=== PATIENT | female | born 1950 | race Caucasian/White ===

== ENCOUNTER → 2018-07-08 | Outpatient (CLI) | payer MEDICARE | END | disposition home or self-care (01) | LOC: CARD DIAG 14:43 | DX: C50.411 Malignant neoplasm of upper-outer quadrant of right female breast (principal); I35.8 Other nonrheumatic aortic valve disorders | CPT/HCPCS: 93306 ==

== ENCOUNTER 2018-08-10 20:17 | Inpatient (IN) | payer MEDICARE, OTHER ==
[~2018-08-10] VITALS: Ht 165.1 cm; Wt 122.7 kg
[2018-08-10] MEDS ORDERED: CefTRIAXone 2gm/D5W 50ml 50 ML IV ONE (20:50)
--- NOTE | 2018-08-10 21:30 | NUR ---
relieving RN for break, started IV on 1st attempt to rt hand, 1st set of blood cx drawn, pt is resting quietly on family criselda at bedside
--- NOTE | 2018-08-10 21:45 | NUR ---
in and out cath done with sterile technique, sample to lab, pt louie well
[2018-08-10 21:47] LABS: BASOPHILS % (AUTO) 2.3 % (0-1); EOSINOPHILS # (AUTO) 0.2 X10'3 (0-0.9); EOSINOPHILS % (AUTO) 18.8 % (0-6); HEMATOCRIT 35.7 % (35.0-45.0); HEMOGLOBIN 12.3 g/dl (12.0-16.0); LYMPHOCYTES # (AUTO) 0.6 X10'3 (1.1-4.8); LYMPHOCYTES % (AUTO) 59.1 % (21-51); MEAN CORPUSCULAR HEMOGLOBIN 31.4 PG (27.0-31.0); MEAN CORPUSCULAR HGB CONC 34.3 g/dL (33.0-36.5); MEAN CORPUSCULAR VOLUME 91.8 FL (78-98); MEAN PLATELET VOLUME 8.1 FL (7.4-10.4); MONOCYTES % (AUTO) 4.6 % (2-12); NEUTROPHILS # (AUTO) 0.2 X10'3 (1.8-7.7); NEUTROPHILS % (AUTO) 15.2 % (42-75); PLATELET COUNT 200 X10'3 (140-440); RED CELL DISTRIBUTION WIDTH 14.2 % (11.5-14.5); WHITE BLOOD COUNT 1.1 X10'3 (4.5-11.0)
[2018-08-10 21:59] LABS: ALANINE AMINOTRANSFERASE 30 U/L (12-78); ALBUMIN 2.9 G/DL (3.4-5.0); ALBUMIN/GLOBULIN RATIO 0.8 (1.1-1.5); ALKALINE PHOSPHATASE 102 IU/L (46-116); ANION GAP 10 (8-16); ASPARTATE AMINO TRANSFERASE 25 U/L (10-37); BILIRUBIN,TOTAL 0.3 MG/DL (0.1-1.0); BLOOD UREA NITROGEN 11 MG/DL (7-18); BUN/CREATININE RATIO 12.8 (6.6-38.0); CALCIUM 8.5 MG/DL (8.5-10.1); CHLORIDE 102 MMOL/L (99-107); CREATININE 0.86 MG/DL (0.40-0.90); GLUCOSE 202 MG/DL (70-104); MAGNESIUM 1.4 MG/DL (1.5-2.4); POTASSIUM 3.6 MMOL/L (3.5-5.1); SODIUM 139 MMOL/L (135-145); TOTAL CARBON DIOXIDE 27.1 MMOL/L (24-32); TOTAL PROTEIN 6.4 G/DL (6.4-8.2); eGFR 66 ML/MIN
[2018-08-10 22:04] LABS: UA COLLECTION TYPE OTHER
[2018-08-10 22:05] LABS: CLARITY,URINE SLIGHTLY CLOUDY (Clear); COLOR,URINE YELLOW (Yellow); GLUCOSE, URINE NEGATIVE (Neg); KETONES,URINE 15 mg/dl (Neg); LEUKOCYTE ESTERASE ,URINE NEGATIVE (Neg); NITRITES, URINE NEGATIVE (Neg); OCCULT BLOOD,URINE NEGATIVE (Neg); PH,URINE 5.5 (4.8-8.0); PROTEIN,URINE 30 mg/dl (Neg); UROBILINOGEN,URINE 0.2 E.U/dL (0.2-1.0)
[2018-08-10 22:19] LABS: MUCUS STRANDS MANY /LPF (Neg); RBC,URINE 0-2 /HPF (0-2); SQUAMOUS EPITHELIAL CELL,UR MANY /LPF (FEW)
[2018-08-10 22:20] LABS: BACTERIA,URINE 1+ /HPF (Neg)
[2018-08-10 22:25] LABS: LYMPHOCYTES % (MANUAL) 56.7 % (21-51); MONOCYTES % (MANUAL) 6.7 % (2-12); NEUTROPHILS % (MANUAL) 16.7 % (42-75); PLATELET ESTIMATE NORMAL; TOTAL CELLS COUNTED 30
[2018-08-10] MEDS ORDERED: cefepime 1GM/NS ADD-VANTAGE 100 ML IV ONE (22:50)
[2018-08-10] MEDS ORDERED: acetaminophen 325mg tablet PO PRN (23:00)
[2018-08-10] MEDS ORDERED: magnesium hydroxide 30ml (MOM) UD suspension PO PRN (23:00)
[2018-08-10] MEDS ORDERED: ondansetron/PF 4mg/2ml inj IV PRN (23:00)
[2018-08-10] MEDS ORDERED: mag hydrox/Alum hydrox/simeth 30ml oral suspension PO PRN (23:00)
--- NOTE | 2018-08-10 23:13 | NUR ---
hepa filter placed in pts room
--- NOTE | 2018-08-10 23:45 | NUR ---
Patient in room PCU 3021. I have received report from Apple NICOLE and had the opportunity to ask questions and assume patient care.
--- NOTE | 2018-08-10 23:55 | NUR ---
Pt arrived to [facility]
[2018-08-11] VITALS (8 sets, daily range): BP systolic 97–186; BP diastolic 66–94
[2018-08-11] MEDS: normal saline 1000ml 1,000 ML IV SCH ×3 (01:39→23:16)
[2018-08-11 05:07] LABS: ALBUMIN 2.8 G/DL (3.4-5.0); ANION GAP 9 (8-16); BLOOD UREA NITROGEN 9 MG/DL (7-18); CALCIUM 8.9 MG/DL (8.5-10.1); CHLORIDE 103 MMOL/L (99-107); CREATININE 0.82 MG/DL (0.40-0.90); GLUCOSE 119 MG/DL (70-104); SODIUM 139 MMOL/L (135-145); eGFR 70 ML/MIN
--- NOTE | 2018-08-11 05:17 | NUR ---
Paged Dr. Durant MESSAGE: Chalino NICOLE [phone] Yodit Chris: Pt requesting analgesic. Pt claims to take [place] 10/325 at home. No Rx for pain ordered at this time. Pt rates pain 7/10 in lower back. Thank you.
[2018-08-11] MEDS: HYDROcodone/acetaminophen 10/325mg tab PO PRN ×3 (05:30→19:12)
[2018-08-11 05:58] LABS: BASOPHILS % (AUTO) 1.3 % (0-1); EOSINOPHILS # (AUTO) 0.2 X10'3 (0-0.9); HEMATOCRIT 33.8 % (35.0-45.0); HEMOGLOBIN 11.5 g/dl (12.0-16.0); LYMPHOCYTES # (AUTO) 0.8 X10'3 (1.1-4.8); LYMPHOCYTES % (AUTO) 64.3 % (21-51); MEAN CORPUSCULAR HEMOGLOBIN 31.4 PG (27.0-31.0); MEAN CORPUSCULAR HGB CONC 34.1 g/dL (33.0-36.5); MEAN PLATELET VOLUME 7.8 FL (7.4-10.4); MONOCYTES # (AUTO) 0.1 X10'3 (0-0.9); MONOCYTES % (AUTO) 4.8 % (2-12); NEUTROPHILS # (AUTO) 0.2 X10'3 (1.8-7.7); NEUTROPHILS % (AUTO) 12.6 % (42-75); PLATELET COUNT 185 X10'3 (140-440); RED BLOOD COUNT 3.67 X10'6 (4.20-5.60); WHITE BLOOD COUNT 1.3 X10'3 (4.5-11.0)
[2018-08-11 06:54] LABS: PLATELET ESTIMATE NORMAL; TOTAL CELLS COUNTED 100
[2018-08-11] MEDS: TBO-filgrastim 480 MCG/0.8ml syringe SQ SCH (08:00)
[2018-08-11] MEDS: enoxaparin 40mg/0.4ml syringe SUBCUT SCH (08:17)
[2018-08-11] MEDS ORDERED: ONDA8TAB12 PO (11:24)
[2018-08-11] MEDS ORDERED: HYDR-3972 PO (11:24)
[2018-08-11] MEDS ORDERED: DULO60CA64 PO (11:24)
[2018-08-11] MEDS ORDERED: PROC10TA10 PO (11:24)
[2018-08-11] MEDS ORDERED: LORA-269 PO (11:25)
[2018-08-11] MEDS ORDERED: LOSA1TAB39 PO (11:25)
[2018-08-11] MEDS: cefepime 2g/NS 100ml ADVANTAGE 100 ML IV SCH ×2 (12:19→23:27)
[2018-08-11] MEDS ORDERED: proCHLORperazine 10mg tablet PO PRN (13:20)
[2018-08-11] MEDS ORDERED: HYDROcodone/acetaminophen 10/325mg tab PO PRN (13:20)
[2018-08-11] MEDS ORDERED: ondansetron 4mg rapidly disintigrating tab PO PRN (13:45)
--- NOTE | 2018-08-11 18:15 | NUR ---
Problems reprioritized. Patient report given, questions answered & plan of care reviewed with [place] NICOLE.
[2018-08-11] MEDS: LORazepam 0.5 MG tablet PO PRN (19:12)
[2018-08-12] MEDS: HYDROcodone/acetaminophen 10/325mg tab PO PRN ×5 (02:43→20:22)
[2018-08-12 03:00] VITALS: BP 176/88
[2018-08-12] MEDS: normal saline 1000ml 1,000 ML IV SCH ×3 (04:59→20:47)
[2018-08-12 05:46] LABS: BASOPHILS % (AUTO) 2.7 % (0-1); EOSINOPHILS # (AUTO) 0.2 X10'3 (0-0.9); EOSINOPHILS % (AUTO) 12.6 % (0-6); HEMATOCRIT 32.4 % (35.0-45.0); LYMPHOCYTES # (AUTO) 0.8 X10'3 (1.1-4.8); LYMPHOCYTES % (AUTO) 49.7 % (21-51); MEAN CORPUSCULAR HEMOGLOBIN 31.1 PG (27.0-31.0); MEAN CORPUSCULAR VOLUME 91.4 FL (78-98); MEAN PLATELET VOLUME 8.2 FL (7.4-10.4); MONOCYTES # (AUTO) 0.2 X10'3 (0-0.9); MONOCYTES % (AUTO) 10.1 % (2-12); NEUTROPHILS # (AUTO) 0.4 X10'3 (1.8-7.7); NEUTROPHILS % (AUTO) 24.9 % (42-75); PLATELET COUNT 161 X10'3 (140-440); RED BLOOD COUNT 3.54 X10'6 (4.20-5.60); RED CELL DISTRIBUTION WIDTH 13.7 % (11.5-14.5); WHITE BLOOD COUNT 1.7 X10'3 (4.5-11.0)
[2018-08-12 06:08] LABS: ALBUMIN 2.7 G/DL (3.4-5.0); ANION GAP 8 (8-16); BLOOD UREA NITROGEN 5 MG/DL (7-18); BUN/CREATININE RATIO 6.8 (6.6-38.0); CALCIUM 8.2 MG/DL (8.5-10.1); CHLORIDE 105 MMOL/L (99-107); CREATININE 0.74 MG/DL (0.40-0.90); GLUCOSE 121 MG/DL (70-104); POTASSIUM 4.2 MMOL/L (3.5-5.1); SODIUM 140 MMOL/L (135-145); TOTAL CARBON DIOXIDE 27.4 MMOL/L (24-32); eGFR 79 ML/MIN
[2018-08-12 06:12] LABS: PLATELET ESTIMATE NORMAL; TOTAL CELLS COUNTED 100
--- NOTE | 2018-08-12 06:15 | NUR ---
Problems reprioritized. Patient report given, questions answered & plan of care reviewed with Deepali NICOLE.
--- NOTE | 2018-08-12 06:17 | NUR ---
Patient in room PCU 3021. I have received report from Anjali NICOLE and had the opportunity to ask questions and assume patient care.
[2018-08-12 07:00] VITALS: BP 170/88
[2018-08-12] MEDS: losartan 50mg tablet PO SCH (07:20)
[2018-08-12] MEDS: duloxetine 30mg CAPSULE.DR PO SCH (07:21)
[2018-08-12] MEDS: TBO-filgrastim 480 MCG/0.8ml syringe SQ SCH (07:22)
[2018-08-12] MEDS: HYDROchlorothiazide 25mg tablet PO SCH (07:22)
[2018-08-12] MEDS: enoxaparin 40mg/0.4ml syringe SUBCUT SCH (07:23)
[2018-08-12] MEDS: LORazepam 0.5 MG tablet PO PRN ×2 (07:24→16:19)
[2018-08-12] MEDS ORDERED: non-formulary drug (Losartan/Hydrochlorothiazide (Losartan-Hctz 100-25 Mg Tab) 1 TAB) PO SCH (08:00)
[2018-08-12] MEDS: loperamide 2mg capsule PO PRN ×2 (10:06→16:20)
[2018-08-12] MEDS: loratadine 10mg tablet PO SCH (10:06)
[2018-08-12 11:00] VITALS: BP 158/77
[2018-08-12] MEDS: cefepime 2g/NS 100ml ADVANTAGE 100 ML IV SCH (12:08)
[2018-08-12 15:00] VITALS: BP 137/70
[2018-08-12 18:00] VITALS: BP 151/86
--- NOTE | 2018-08-12 18:11 | NUR ---
Problems reprioritized. Patient report given, questions answered & plan of care reviewed with Anjali NICOLE. Patient stable at transfer of care.
--- NOTE | 2018-08-12 18:18 | NUR ---
[place] documentation: I have reviewed and agree with all interventions, assessments performed and documented by Graciela NICOLE. [place] Medication Administration: For this medication-pass time frame, all medication were reviewed, dispensed, administered and documented per hospital policy by Graciela NICOLE.
--- NOTE | 2018-08-12 18:20 | NUR ---
Patient in room PCU 3021. I have received report from Deepali NICOLE and had the opportunity to ask questions and assume patient care.
[2018-08-12 23:00] VITALS: BP 159/74
[2018-08-13] MEDS: LORazepam 0.5 MG tablet PO PRN ×2 (00:08→08:54)
[2018-08-13] MEDS: cefepime 2g/NS 100ml ADVANTAGE 100 ML IV SCH ×2 (00:09→12:00)
[2018-08-13] MEDS: HYDROcodone/acetaminophen 10/325mg tab PO PRN ×3 (01:23→13:24)
[2018-08-13 02:00] VITALS: BP 159/71
[2018-08-13 06:30] VITALS: BP 161/81
--- NOTE | 2018-08-13 06:31 | NUR ---
Patient in room PCU 3021. I have received report from COREY ARIZA and had the opportunity to ask questions and assume patient care.
[2018-08-13 06:48] LABS: BASOPHILS % (AUTO) 0.1 % (0-1); EOSINOPHILS # (AUTO) 0.2 X10'3 (0-0.9); EOSINOPHILS % (AUTO) 4.1 % (0-6); HEMATOCRIT 33.9 % (35.0-45.0); HEMOGLOBIN 11.3 g/dl (12.0-16.0); LYMPHOCYTES # (AUTO) 1.1 X10'3 (1.1-4.8); MEAN CORPUSCULAR HEMOGLOBIN 30.8 PG (27.0-31.0); MEAN CORPUSCULAR HGB CONC 33.2 g/dL (33.0-36.5); MEAN CORPUSCULAR VOLUME 92.9 FL (78-98); MEAN PLATELET VOLUME 8.2 FL (7.4-10.4); MONOCYTES % (AUTO) 0.4 % (2-12); NEUTROPHILS # (AUTO) 4.6 X10'3 (1.8-7.7); NEUTROPHILS % (AUTO) 77.4 % (42-75); PLATELET COUNT 192 X10'3 (140-440); RED BLOOD COUNT 3.66 X10'6 (4.20-5.60); RED CELL DISTRIBUTION WIDTH 14.2 % (11.5-14.5); WHITE BLOOD COUNT 5.9 X10'3 (4.5-11.0)
[2018-08-13 07:04] LABS: ALBUMIN 2.7 G/DL (3.4-5.0); ANION GAP 8 (8-16); BLOOD UREA NITROGEN 3 MG/DL (7-18); BUN/CREATININE RATIO 4.5 (6.6-38.0); CALCIUM 8.3 MG/DL (8.5-10.1); CHLORIDE 105 MMOL/L (99-107); CREATININE 0.66 MG/DL (0.40-0.90); GLUCOSE 112 MG/DL (70-104); POTASSIUM 3.3 MMOL/L (3.5-5.1); SODIUM 142 MMOL/L (135-145); TOTAL CARBON DIOXIDE 28.7 MMOL/L (24-32); eGFR 90 ML/MIN
[2018-08-13] MEDS: TBO-filgrastim 480 MCG/0.8ml syringe SQ SCH (08:37)
[2018-08-13] MEDS: enoxaparin 40mg/0.4ml syringe SUBCUT SCH (08:38)
[2018-08-13] MEDS: duloxetine 30mg CAPSULE.DR PO SCH (08:38)
[2018-08-13] MEDS: losartan 50mg tablet PO SCH (08:38)
[2018-08-13] MEDS: HYDROchlorothiazide 25mg tablet PO SCH (08:38)
[2018-08-13] MEDS: loratadine 10mg tablet PO SCH (08:38)
[2018-08-13] MEDS: normal saline 1000ml 1,000 ML IV SCH (08:39)
[2018-08-13 08:47] VITALS: BP 156/87
[2018-08-13 08:50] LABS: TOTAL CELLS COUNTED 100
[2018-08-13 08:51] LABS: PLATELET ESTIMATE NORMAL; POLYCHROMASIA 1+; TOXIC GRANULATION 3+
--- NOTE | 2018-08-13 09:05 | NUR ---
PAGED DR. JIMENEZ PAGER ID: [phone] MESSAGE: DANIEL CORCORAN [phone] JENNIFER PARRA 3.3 REPLACEMENT ORDERS?
--- NOTE | 2018-08-13 10:03 | NUR ---
SPOKE TO DR JIMENEZ NO ORDERS TO REPLACE K NEEDED PER MD. HE IS AWARE K 3.3
[2018-08-13] MEDS: loperamide 2mg capsule PO PRN (10:28)
[2018-08-13 11:00] VITALS: BP 160/81
--- NOTE | 2018-08-13 15:00 | NUR ---
PT DISCHARGED IN STABLE CONDITION, PIV D/C'D, ALL BELONGINGS SENT HOME WITH PT. DISCHARGE INSTRUCTIONS GIVEN TO PT AND PTS DAUGHTER. PT HAS AN APPT AT [facility] NEXT WEEK.
== END 2018-08-13 15:00 | disposition home or self-care (01) | DRG 809 ==
LOC: ER 20:18 → ED HOLD 22:59 → PCU 3S 23:42
PROVIDERS: ADMIT Family Medicine; ATTEND Internal Medicine
DX: D70.1 Agranulocytosis secondary to cancer chemotherapy (principal); Z68.42 Body mass index [BMI] 45.0-49.9, adult; C50.919 Malignant neoplasm of unspecified site of unspecified female breast; G47.30 Sleep apnea, unspecified; I10 Essential (primary) hypertension; J45.909 Unspecified asthma, uncomplicated; G89.29 Other chronic pain; M54.9 Dorsalgia, unspecified; T45.1X5A Adverse effect of antineoplastic and immunosuppressive drugs, initial encounter; R50.81 Fever presenting with conditions classified elsewhere; E66.01 Morbid (severe) obesity due to excess calories; Z88.2 Allergy status to sulfonamides; Z91.048 Other nonmedicinal substance allergy status; Z79.899 Other long term (current) drug therapy; Z85.3 Personal history of malignant neoplasm of breast; Z80.1 Family history of malignant neoplasm of trachea, bronchus and lung; Y92.89 Other specified places as the place of occurrence of the external cause
CPT/HCPCS: 36415; 71045; 80048; 80053; 81001; 83605; 83735; 83880; 84145; 85025; 87040; 87070; 87088; 93005; 96365; 99285; G0378; J0692; J0696; J1442; J1650; J2405; J7030

== ENCOUNTER 2020-03-14 18:58 | Emergency (ER) | payer MEDICARE, MEDICAID ==
[~2020-03-14] VITALS: Ht 167.6 cm; Wt 120.0 kg
[~2020-03-14 18:58] MED LIST: DULO60CA65 PO; HYDR-3972 PO; LORA-269 PO; LOSA1TAB39 PO; ONDA8TAB65 PO; PROC10TA10 PO
[2020-03-14 21:22] LABS: BASOPHILS # (AUTO) 0.1 X10'3 (0-0.2); BASOPHILS % (AUTO) 0.6 % (0-1); EOSINOPHILS # (AUTO) 0.4 X10'3 (0-0.9); EOSINOPHILS % (AUTO) 3.8 % (0-6); HEMATOCRIT 41.6 % (35.0-45.0); LYMPHOCYTES # (AUTO) 1.1 X10'3 (1.1-4.8); LYMPHOCYTES % (AUTO) 9.6 % (21-51); MEAN CORPUSCULAR HEMOGLOBIN 31.2 PG (27.0-31.0); MEAN CORPUSCULAR HGB CONC 33.6 g/dL (33.0-36.5); MEAN CORPUSCULAR VOLUME 92.8 FL (78-98); MEAN PLATELET VOLUME 7.6 FL (7.4-10.4); MONOCYTES # (AUTO) 0.8 X10'3 (0-0.9); MONOCYTES % (AUTO) 6.8 % (2-12); NEUTROPHILS # (AUTO) 8.9 X10'3 (1.8-7.7); NEUTROPHILS % (AUTO) 79.2 % (42-75); PLATELET COUNT 370 X10'3 (140-440); RED BLOOD COUNT 4.48 X10'6 (4.20-5.60); RED CELL DISTRIBUTION WIDTH 14.6 % (11.5-14.5); WHITE BLOOD COUNT 11.2 X10'3 (4.5-11.0)
[2020-03-14 21:30] LABS: ALANINE AMINOTRANSFERASE 39 U/L (12-78); ALBUMIN 3.7 G/DL (3.4-5.0); ALBUMIN/GLOBULIN RATIO 0.8 (1.1-1.5); ALKALINE PHOSPHATASE 129 IU/L (46-116); ANION GAP 10 (8-16); ASPARTATE AMINO TRANSFERASE 33 U/L (10-37); BILIRUBIN,TOTAL 0.2 MG/DL (0.1-1.0); BLOOD UREA NITROGEN 18 MG/DL (7-18); BUN/CREATININE RATIO 13.3 (6.6-38.0); CALCIUM 9.5 MG/DL (8.5-10.1); CHLORIDE 100 MMOL/L (99-107); CREATININE 1.35 MG/DL (0.40-0.90); GLUCOSE 157 MG/DL (70-104); POTASSIUM 3.7 MMOL/L (3.5-5.1); SODIUM 139 MMOL/L (135-145); TOTAL CARBON DIOXIDE 28.6 MMOL/L (24-32); TOTAL PROTEIN 8.1 G/DL (6.4-8.2); eGFR 39 ML/MIN
[2020-03-14] MEDS ORDERED: normal saline 1000ml 1,000 ML IV ONE (21:50)
[2020-03-14] MEDS ORDERED: iohexol 350MG/ML 100ml bottle IV ONE (21:54)
[2020-03-14 23:18] VITALS: BP 150/86
[2020-03-14] MEDS ORDERED: ALBU8HFA PO (23:55)
== END 2020-03-15 01:22 | disposition home or self-care (01) ==
LOC: ER 18:59
DX: R06.02 Shortness of breath (principal); R05 Cough; R06.2 Wheezing; I10 Essential (primary) hypertension; J45.909 Unspecified asthma, uncomplicated; Z98.890 Other specified postprocedural states; Z88.8 Allergy status to other drugs, medicaments and biological substances; Z79.899 Other long term (current) drug therapy
CPT/HCPCS: 36415; 71045; 71275; 80053; 85025; 87635; 96360; 99285; C9803; J7030; Q9967

== ENCOUNTER 2020-11-10 12:31 | Emergency (ER) | payer MEDICARE, MEDICAID ==
[~2020-11-10] VITALS: Ht 167.6 cm; Wt 117.3 kg
--- NOTE | 2020-11-10 14:45 | NUR ---
Received VO for L unilateral 2 view hip x-ray from NURY Healy
[2020-11-10] MEDS ORDERED: oxyCODONE IR 5mg (immed. release) tablet PO ONE (15:25)
[2020-11-10] MEDS ORDERED: DICL100G15 TOP (16:04)
[2020-11-10 16:43] VITALS: BP 150/72
== END 2020-11-10 16:45 | disposition home or self-care (01) ==
LOC: ER 12:32
DX: M25.552 Pain in left hip (principal); I10 Essential (primary) hypertension; J45.909 Unspecified asthma, uncomplicated; Z85.3 Personal history of malignant neoplasm of breast; Z88.2 Allergy status to sulfonamides; Z91.09 Other allergy status, other than to drugs and biological substances; Z79.899 Other long term (current) drug therapy
CPT/HCPCS: 73502; 99283

== ENCOUNTER 2021-11-15 08:09 | Emergency (ER) | payer MEDICARE, MEDICAID ==
[~2021-11-15] VITALS: Ht 165.1 cm; Wt 81.8 kg
[~2021-11-15 08:09] MED LIST changes: +DICL100G15 TOP; +ONDA-104 PO; -ONDA8TAB65 PO
[2021-11-15 12:03] LABS: BASOPHILS % (AUTO) 0.6 % (0-1); EOSINOPHILS # (AUTO) 0.3 X10'3 (0-0.9); LYMPHOCYTES # (AUTO) 1.1 X10'3 (1.1-4.8); LYMPHOCYTES % (AUTO) 15.6 % (21-51); MEAN CORPUSCULAR HEMOGLOBIN 30.3 PG (27.0-31.0); MEAN CORPUSCULAR HGB CONC 32.4 g/dL (33.0-36.5); MEAN CORPUSCULAR VOLUME 93.5 FL (78-98); MONOCYTES # (AUTO) 0.5 X10'3 (0-0.9); NEUTROPHILS % (AUTO) 71.8 % (42-75); PLATELET COUNT 311 X10'3 (140-440); RED BLOOD COUNT 4.27 X10'6 (4.20-5.60); RED CELL DISTRIBUTION WIDTH 14.4 % (11.5-14.5); WHITE BLOOD COUNT 6.9 X10'3 (4.5-11.0)
[2021-11-15 12:18] LABS: ALANINE AMINOTRANSFERASE 15 U/L (12-78); ALKALINE PHOSPHATASE 91 IU/L (46-116); ANION GAP 8 (8-16); ASPARTATE AMINO TRANSFERASE 15 U/L (10-37); BILIRUBIN,TOTAL 0.4 MG/DL (0.1-1.0); BLOOD UREA NITROGEN 13 MG/DL (7-18); BUN/CREATININE RATIO 13.5 (6.6-38.0); CHLORIDE 103 MMOL/L (99-107); CREATININE 0.96 MG/DL (0.40-0.90); GLUCOSE 121 MG/DL (70-104); POTASSIUM 4.2 MMOL/L (3.5-5.1); SODIUM 139 MMOL/L (135-145); TOTAL CARBON DIOXIDE 28.3 MMOL/L (24-32); TOTAL PROTEIN 7.4 G/DL (6.4-8.2); eGFR 58 ML/MIN
[2021-11-15 12:25] LABS: ALBUMIN 3.5 G/DL (3.4-5.0); ALBUMIN/GLOBULIN RATIO 0.9 (1.1-1.5)
[2021-11-15] MEDS ORDERED: proparacaine 0.5% ophthalmic drops 15ml LEFTEYE ONE (13:10)
[2021-11-15] MEDS ORDERED: TETanus/Pertussis (Acell)/Diphther VAC/PF (Tdap-Adult) 0.5ml syringe IMVAC ONE (13:35)
[2021-11-15] MEDS ORDERED: LIDOcaine 1% W/epiNEPHrine 1:200,000 10ml vial IJ ONE (13:35)
[2021-11-15 14:06] LABS: CLARITY,URINE CLEAR (Clear); COLOR,URINE YELLOW (Yellow); GLUCOSE, URINE NEGATIVE (Neg); KETONES,URINE NEGATIVE (Neg); LEUKOCYTE ESTERASE ,URINE SMALL (Neg); NITRITES, URINE POSITIVE (Neg); OCCULT BLOOD,URINE NEGATIVE (Neg); PH,URINE 5.5 (4.8-8.0); PROTEIN,URINE NEGATIVE (Neg); UROBILINOGEN,URINE 0.2 E.U/dL (0.2-1.0)
[2021-11-15 14:09] LABS: URINE AMPHETAMINE SCREEN NEGATIVE (Neg); URINE BARBITUATE SCREEN NEGATIVE (Neg); URINE BENZODIAZEPINES SCREEN NEGATIVE (Neg); URINE CANNABINOID SCREEN POSITIVE (Neg); URINE COCAINE SCREEN NEGATIVE (Neg); URINE METHADONE SCREEN NEGATIVE (Neg); URINE OPIATE SCREEN POSITIVE (Neg); URINE PHENCYCLIDINE SCREEN NEGATIVE (Neg)
[2021-11-15] MEDS ORDERED: LIDOcaine 1% w/EPI 1:100,000 30ml vial (MDV) IJ ONE (14:10)
[2021-11-15] MEDS ORDERED: LIDOcaine 1% W/epiNEPHrine 1:100,000 20ml vial IJ ONE (14:10)
[2021-11-15 14:18] LABS: UA COLLECTION TYPE CLN CATCH MIDSTREAM
[2021-11-15 14:42] LABS: WBC,URINE 20-30 /HPF (0-4)
[2021-11-15 14:43] LABS: BACTERIA,URINE 4+ /HPF (Neg); MUCUS STRANDS NONE SEEN /LPF (Neg); RBC,URINE 0-2 /HPF (0-2); RENAL CELLS, URINE FEW /HPF; SQUAMOUS EPITHELIAL CELL,UR NONE SEEN /LPF (FEW); WBC CLUMPS,URINE FEW /HPF (NEGATIVE)
[2021-11-15 16:11] VITALS: BP 144/83
--- NOTE | 2021-11-18 14:33 | NUR ---
PT CALLED REGARDING VISIT ON 11/15/21. INFORMED THAT LAB RESULTS SHOWED SHE HAD A UTI AND THAT AN ABX WILL BE CALLED IN TO HER PHARMACY. PT REQUESTED THAT RX BE CALLED TO [facility] ON [address]. KEFLEX 500MG, 1 PO QID x7 DAYS #28 WAS CALLED INTO [facility] ON [address] REQUESTED
== END 2021-11-15 16:14 | disposition home or self-care (01) ==
LOC: ER 08:11
DX: S01.81XA Laceration without foreign body of other part of head, initial encounter (principal); W18.39XA Other fall on same level, initial encounter; Y93.89 Activity, other specified; Y92.89 Other specified places as the place of occurrence of the external cause; Y99.8 Other external cause status; I10 Essential (primary) hypertension; J45.909 Unspecified asthma, uncomplicated; Z88.2 Allergy status to sulfonamides; Z88.8 Allergy status to other drugs, medicaments and biological substances; Z79.899 Other long term (current) drug therapy
CPT/HCPCS: 12011; 36415; 70450; 71045; 80053; 80305; 81001; 82948; 84484; 85025; 87077; 87088; 87186; 90715; 93005; 99285

== ENCOUNTER 2021-11-22 17:52 | Emergency (ER) | payer MEDICARE, MEDICAID ==
[~2021-11-22] VITALS: Ht 165.1 cm; Wt 112.7 kg
[2021-11-22 17:59] VITALS: BP 170/97
== END 2021-11-22 18:30 | disposition home or self-care (01) ==
LOC: ER 17:53
DX: S01.91XD Laceration without foreign body of unspecified part of head, subsequent encounter (principal); I10 Essential (primary) hypertension; J45.909 Unspecified asthma, uncomplicated; Z48.02 Encounter for removal of sutures; Z85.3 Personal history of malignant neoplasm of breast; Z98.890 Other specified postprocedural states; Z88.2 Allergy status to sulfonamides; Z79.899 Other long term (current) drug therapy; W19.XXXD Unspecified fall, subsequent encounter
CPT/HCPCS: 99281

== ENCOUNTER 2025-01-23 18:04 | Emergency (ER) | payer BC, MEDICAID ==
[~2025-01-23] VITALS: Ht 165.1 cm; Wt 104.5 kg
[~2025-01-23 18:04] MED LIST changes: -PROC10TA10 PO; +PROC10TA97 PO
--- NOTE | 2025-01-23 18:53 | RADIOLOGY REPORT ---
CLINICAL INDICATION: PELVIS PAIN TECHNIQUE: 1 radiographic views of the pelvis were obtained. Comparison: None FINDINGS/IMPRESSION: There is no evidence of acute fracture or dislocation. [id number] degenerative changes of bilateral hips. The alignment is anatomical. Nonspecific curvilinear density over the right medial lower lung zone which may be artifactual. Moderate to large amount of fecal material within the colon.
--- NOTE | 2025-01-23 19:12 | Physician Documentation ---
History of Present Illness ~ Chief Complaint: Mechanical Fall Stated Complaint: FELL OVER A WEEK AGO Time Seen by MD: 18:25 Primary Medical Doctor: Dr Roper HPI Patient presents to the emergency room for evaluation of back and hip pain. She fell a few days ago injury her left hip. No head strike. She is on chronic pain medication along with opioids gabapentin and ibuprofen and Tylenol. She denies any bladder or bowel incontinence Tetanus within 5 Years?: No Medication Reconciliation Allergies: Coded Allergies: Sulfa (Sulfonamide Antibiotics) (Verified Allergy, Unknown, 01/23/25) adhesive (Verified Allergy, Unknown, 01/23/25) Scheduled Diclofenac Sodium (Voltaren), 1 GM TOP Q6H Duloxetine HCl (Duloxetine HCl), 1 TAB PO DAILY, (Reported) Losartan/Hydrochlorothiazide (Losartan-Hctz 100-25 Mg Tab), 1 TAB PO DAILY, (Reported) Scheduled PRN Hydrocodone Bit/Acetaminophen (Hydrocodon-Acetaminophn 10-325 tablet), 1 TAB PO TID PRN for pain, (Reported) Lorazepam (Ativan), 0.5 TAB PO Q8H PRN for for anxiety/agitation, (Reported) Ondansetron HCl (Ondansetron HCl), 1 TAB PO Q8H PRN for nausea/vomiting, (Repo rted) Prochlorperazine Maleate (Prochlorperazine Maleate), 1 TAB PO Q6H PRN for nausea/vomiting, (Reported) Past Medical History Past Medical History: Hypertension, Asthma, Eczema, Breast Cancer Past Surgical History: cancer surgery Alcohol Use: None Drug Use: none Lives In: Home Review of Systems ROS All review of systems negative except as per HPI Physical Exam Vital Signs: Temperature: 98.1, Source: Temporal, Heart Rate: 89, Respiratory Rate: 18, BP: 154/98, Pulse Oximetry: 96, Weight: 104.550 Physical Exam General: Patient is awake, alert, oriented x4 in no acute distress and well appearing.~ Head: Normocephalic and atraumatic. Eyes: Conjunctival normal. EOMI. PERRL. ENT: Mucous membranes moist. Neck: Supple, trachea is midline. Chest: Clear to auscultation bilaterally without rales, rhonchi, or wheezes. There is no accessory muscle use or retractions. Cardiac: RRR without murmurs, gallops, or rubs. Back: Tenderness to palpation to the left SI joint Progress Results/Orders Results/Orders Orders - DARINEL JENKINS MD Orphenadrine Citrate Inj. (Norflex Inj.) (01/23/25 19:25) Vital Signs 01/23/25 18:12 Temp 98.1 Pulse 89 Resp 18 B/P (MAP) 154/98 Pulse Ox 96 EKG/XRAY/CT/US/VASC/MRI Bone/Soft Tissue X-Ray (Spine) : Additional Comment Exam: PELVIS,LIMITED 1-2 VIEWS CLINICAL INDICATION: PELVIS PAIN TECHNIQUE: 1 radiographic views of the pelvis were obtained. Comparison: None FINDINGS/IMPRESSION: There is no evidence of acute fracture or dislocation. Sdev-bp-[id number] degenerative changes of bilateral hips. The alignment is anatomical. Nonspecific curvilinear density over the right medial lower lung zone which may be artifactual. Moderate to large amount of fecal material within the colon. Medical Decision Making Findings Patient presented to the emergency room with back pain as per HPI. Differentials include but are not limited to fractures, dislocations, soft tissue injury, cauda equina, aortic pathology. Given physical exam and history I do not feel patient requires advanced imaging and x-ray is negative for fracture. Physical exam and history is consistent with muscle strain and we will treat her as such. Patient has a pain contract doctor. The only thing I can offer her muscle relaxers. Departure Disposition: HOME / SELF CARE / HOMELESS Impression: Primary Impression: Lumbago Condition: Stable Discharge Instructions: Acute Back Pain, Adult Referrals: NO PRIMARY CARE PROVIDER (PCP) Prescriptions Cyclobenzaprine* (Cyclobenzaprine*) 10 Mg Tablet 1 TAB PO HS for muscle spasms for 30 Days, #30 TAB 0 Refills Prov: DARINEL JENKINS MD 01/23/25 Education Educated: Patient Educated regarding: diagnosis, treatment, need for follow up Signature Scribe Signature: No scribe Attestation: The note accurately reflects work and decisions made by me.Darinel Jenkins MD 01/23/25 19:27 DARINEL JENKINS MD Jan 23, 2025 19:12
[2025-01-23] MEDS ORDERED: CYCL-1 PO (19:27)
[2025-01-23] MEDS: orphenadrine citrate 60mg/2ml inj. IM ONE (19:32)
[2025-01-23 19:48] VITALS: BP 150/92; PULSE 86; RESP 18; TEMP 98.6; O2SAT 99
== END 2025-01-23 19:49 | disposition home or self-care (01) ==
LOC: ER 18:05
DX: M54.50 Low back pain, unspecified (principal); M25.552 Pain in left hip; I10 Essential (primary) hypertension; J45.909 Unspecified asthma, uncomplicated; Z85.3 Personal history of malignant neoplasm of breast; Z88.2 Allergy status to sulfonamides; Z88.8 Allergy status to other drugs, medicaments and biological substances
CPT/HCPCS: 72170; 96372; 99284; J2360